=== PATIENT | male | born 1985 | race African-American/Black ===

== ENCOUNTER 2018-11-02 15:41 | Emergency (ER) | payer OTHER ==
--- NOTE | 2018-11-02 16:50 | ED ---
Upper Extremity Pain - HPI Summary HPI Summary: 33 year old male presents with right hand paresthesias that are intermittent for the past couple days. He states they're worse at night or when trying to work. He is left-handed. he does a lot of manual labor at work. He has a history of high blood pressure. He denies any injury. He states that his pain seems worst at night especially. He states pain starts as a crap and then develops numbness tingling of his hand. It is not worse with flexion or extension. - History of Current Complaint Chief Complaint: EDExtremityUpper Stated Complaint: RIGHT HAND NUMBNESS/CRAMPING PER PT Time Seen by Provider: 11/02/18 16:32 - Allergies/Home Medications Allergies/Adverse Reactions: Allergies Allergy/AdvReac Type Severity Reaction Status Date / Time ibuprofen Allergy Severe See Comment Verified 11/02/18 15:48 PMH/Surg Hx/FS Hx/Imm Hx Endocrine/Hematology History: Denies: Hx Anticoagulant Therapy Cardiovascular History: Reports: Hx Hypertension Respiratory History: Denies: Hx Asthma Infectious Disease History: No Infectious Disease History: Denies: Traveled Outside the [place] in Last 30 Days - Family History Known Family History: Positive: Non-Contributory - Social History Alcohol Use: None Substance Use Type: Reports: None Smoking Status (MU): Never Smoked Tobacco Review of Systems Negative: Fever Negative: Chest Pain Negative: Shortness Of Breath Positive: Myalgia - right hand parethesia All Other Systems Reviewed And Are Negative: Yes Physical Exam Triage Information Reviewed: Yes Vital Signs On Initial Exam: Initial Vitals Temp Pulse Resp BP Pulse Ox 98.6 F 83 16 143/82 98 11/02/18 15:46 11/02/18 15:46 11/02/18 15:46 11/02/18 15:46 11/02/18 15:46 Vital Signs Reviewed: Yes Appearance: Positive: Well-Appearing Skin: Positive: Warm, Dry Head/Face: Positive: Normal Head/Face Inspection Eyes: Positive: Normal, Conjunctiva Clear ENT: Positive: Pharynx normal Respiratory/Lung Sounds: Positive: Clear to Auscultation, Breath Sounds Present Cardiovascular: Positive: Normal, RRR Musculoskeletal: Positive: Strength/ROM Intact - right hand, Other - positive phalens, good pulses, good shiftman strength, sensation grossly intact Neurological: Positive: Normal Psychiatric: Positive: Normal Diagnostics - Vital Signs Vital Signs Temp Pulse Resp BP Pulse Ox 11/02/18 15:46 98.6 F 83 16 143/82 98 - Laboratory Lab Statement: Any lab studies that have been ordered have been reviewed, and results considered in the medical decision making process. Course/Dx - Course Course Of Treatment: 33 year old male presents with right hand paresthesias that are intermittent for the past couple days. He states they're worse at night or when trying to work. He is left-handed. he does a lot of manual labor at work. He has a history of high blood pressure. He denies any injury. He states that his pain seems worst at night especially. He states pain starts as a crap and then develops numbness tingling of his hand. It is not worse with flexion or extension. On exam has positive phalens. Neurovascularly intact. Good shiftman strength. Discussed likely has carpal tunnel. Gave cock up splint. Told to treat conservatively if no improvement follow up with ortho. Patient understands agrees with plan. - Diagnoses Differential Diagnosis/HQI/PQRI: Positive: Fracture (Closed), Sprain, Other - carpel tunnel Provider Diagnoses: Carpal tunnel syndrome Discharge - Sign-Out/Discharge Documenting (check all that apply): Patient Departure Patient Received Moderate/Deep Sedation with Procedure: No - Discharge Plan Condition: Good Disposition: HOME Patient Education Materials: R.I.C.E. Treatment (ED) Forms: *Work Release Referrals: Leeanna Duarte MD [Primary Care Provider] - Maryanne Jason MD [Medical Doctor] - Additional Instructions: Take Tylenol every 6 hours as needed for pain Apply ice, rest, elevate use splint on area Follow up with ortho if no improvement Return to ED if develop any new or worsening symptoms - Billing Disposition and Condition Condition: GOOD Disposition: Home
[2018-11-02 17:05] VITALS: BP 140/85
== END 2018-11-02 17:04 | disposition home or self-care (01) ==
LOC: ED 15:41
DX: G56.01 Carpal tunnel syndrome, right upper limb (principal); I10 Essential (primary) hypertension
CPT/HCPCS: 99281